=== PATIENT | male | born 2000 | race African-American/Black ===

== ENCOUNTER 2021-12-22 05:45 | Emergency (ER) | payer OTHER ==
[2021-12-22 05:53] VITALS: RESP 20; TEMP 98.1; BMI 31.0
[2021-12-22] MEDS ORDERED: ACETAMINOPHEN 500 MG TABLET (FP) PO ONE (06:08)
[2021-12-22] MEDS ORDERED: ALBUTEROL SO4 2.5/IPRATROPIUM 0.5 INH SOL 3 ML VIAL.NEB. NEB ONE ×2 (06:09)
[2021-12-22] MEDS ORDERED: ACETAMINOPHEN 500 MG TABLET (FP) ONE (06:29)
[2021-12-22] MEDS ORDERED: DEXAMETHASONE SOD PHOSPHATE 10 MG/1 ML VIAL IM ONE (08:09)
[2021-12-22] MEDS ORDERED: DEXAMETHASONE SOD PHOSPHATE 10 MG/1 ML VIAL ONE (08:15)
[2021-12-22 08:46] VITALS: BP 148/90; PULSE 80
== END 2021-12-22 08:47 | disposition home or self-care (01) ==
LOC: JER 05:45
PROC: 3E0F7GC Introduction of Other Therapeutic Substance into Respiratory Tract, Via Natural or Artificial Opening (ICD-10-PCS; principal; 2021-12-22)
PROC: 3E0233Z Introduction of Anti-inflammatory into Muscle, Percutaneous Approach (ICD-10-PCS; 2021-12-22)
DX: J04.0 Acute laryngitis (principal); J06.9 Acute upper respiratory infection, unspecified
CPT/HCPCS: 0241U-QW; 71046-TC-FY; 87651; 93005; 93010; 99285-25; J1100

== ENCOUNTER 2024-07-07 02:10 | Emergency (ER) | payer OTHER ==
[2024-07-07 02:15] VITALS: BMI 39.9
[2024-07-07 03:39] LABS: ABSOLUTE IMMATURE GRANULOCYTES 0.02 x10^3/uL (0.0-0.031); BASOPHILS # 0.09 x10^3/uL (0.01-0.08); EOSINOPHIL % 11.8 % (0.8-7.0); EOSINOPHILS # 0.67 x10^3/uL (0.04-0.54); HEMATOCRIT 47.1 % (40.1-51.0); HEMOGLOBIN 15.6 g/dL (13.7-17.5); MCHC 33.1 g/dl (32.3-36.5); MEAN CELL VOLUME 96.9 fl (79.0-92.2); MEAN PLT VOLUME 10.7 fl (9.4-12.4); MONOCYTE % 14.1 % (5.3-12.2); PLATELET COUNT 189 x10^3/uL (163-337)
[2024-07-07 03:46] LABS: INR 1.06 (0.83-1.09); PROTHROMBIN TIME (PATIENT) 11.6 SEC (9.7-13.0)
[2024-07-07 03:49] LABS: ACTIVATED PTT 33.2 SECONDS (25.2-36.5)
[2024-07-07] MEDS ORDERED: KETOROLAC TROMETHAMINE 15 MG/ML VIAL ONE (03:54)
[2024-07-07] MEDS: SODIUM CHLORIDE 500 ML IV STA (03:59)
[2024-07-07] MEDS: KETOROLAC TROMETHAMINE 15 MG/ML VIAL IVPUSH ONE (04:00)
[2024-07-07 04:01] LABS: POTASSIUM 4.3 mmol/L (3.5-5.1)
[2024-07-07 04:03] LABS: ALBUMIN 4.1 g/dl (3.4-5.0); BLOOD UREA NITROGEN 13.7 mg/dL (7-18); CALCIUM 9.3 mg/dL (8.5-10.1)
[2024-07-07 04:08] LABS: BILIRUBIN,TOTAL 0.4 mg/dL (0.2-1); TOT PROT 8.7 g/dl (6.4-8.2)
[2024-07-07 05:22] LABS: HCV DIAGNOSTIC IN-HOUSE W/RFLX NON-REACTIVE (NONREACTIVE); HIV INTERPRETATION NEGATIVE (NEGATIVE)
[2024-07-07 07:47] VITALS: PULSE 104; RESP 16
[2024-07-07] MEDS ORDERED: LORazepam 2 MG/ML SDV VIAL ONE (08:34)
[2024-07-07 10:36] VITALS: BP 173/103; TEMP 99.2
== END 2024-07-07 10:40 | disposition home or self-care (01) ==
LOC: JER 02:10
PROC: 3E0333Z Introduction of Anti-inflammatory into Peripheral Vein, Percutaneous Approach (ICD-10-PCS; principal; 2024-07-07)
PROC: 3E033GC Introduction of Other Therapeutic Substance into Peripheral Vein, Percutaneous Approach (ICD-10-PCS; 2024-07-07)
PROC: 3E0337Z Introduction of Electrolytic and Water Balance Substance into Peripheral Vein, Percutaneous Approach (ICD-10-PCS; 2024-07-07)
DX: R07.89 Other chest pain (principal); R10.13 Epigastric pain; R00.2 Palpitations; R11.2 Nausea with vomiting, unspecified; R06.2 Wheezing; R14.0 Abdominal distension (gaseous); R42 Dizziness and giddiness; R05.3 Chronic cough; R25.1 Tremor, unspecified; F10.939 Alcohol use, unspecified with withdrawal, unspecified; Y90.9 Presence of alcohol in blood, level not specified
CPT/HCPCS: 0241U-QW; 36415; 71046-TC-FY; 76705-TC; 80053; 83690; 84484; 85025; 85610; 85730; 86803; 86850; 86900; 86901; 87389; 93005; 93010; 93308; 99285-25